=== PATIENT | female | born 1955 | race Caucasian/White ===

== ENCOUNTER → 2022-03-26 | Outpatient (CLI) | payer OTHER ==
[~2022-03-26] MED LIST: ECOTRIN81 MG PO; IMDUR ER TAB 3030 MG PO; LISINOPRIL2.5 MG PO; LOPRESSOR 25 MG25 MG PO; LOVASTATIN20 MG PO; NEURONTIN 300300 MG PO; NEXIUM40 MG PO; NITROSTAT0.4 MG SL; NORCO 7.5-3251 EACH PO; TUMS200 MG PO
== END ==
LOC: KOH-I 13:10
DX: M25.562 Pain in left knee (principal); M17.12 Unilateral primary osteoarthritis, left knee
CPT/HCPCS: 73562